=== PATIENT | female | born 1955 | race Caucasian/White ===

== ENCOUNTER 2023-03-24 10:44 | Emergency (ER) | payer OTHER ==
[2023-03-24 11:21] VITALS: BP 163/70; PULSE 79; RESP 18; TEMP 98.2; BMI 38.0
[2023-03-24] MEDS ORDERED: SODIUM CHLORIDE 0.9% 500 ML INFUS.BAG IV ONE (12:26)
[2023-03-24] MEDS ORDERED: SILVER NITRATE 75% APPLIC STCK 1 PKT EACH TP ONE (12:26)
[2023-03-24] MEDS ORDERED: SILVER NITRATE 75% APPLIC STCK 1 PKT EACH ONE (12:53)
[2023-03-24 13:45] LABS: POTASSIUM 4.4 mmol/L (3.5-5.1)
[2023-03-24 13:46] LABS: CALCIUM 9.6 mg/dL (8.5-10.1); MAGNESIUM 2.2 mg/dL (1.8-2.4)
[2023-03-24 13:47] LABS: BLOOD UREA NITROGEN 14.9 mg/dL (7-18)
[2023-03-24 13:50] LABS: CREATININE 0.8 mg/dL (0.55-1.3); HEMATOCRIT 38.4 % (32.4-45.2); HEMOGLOBIN 12.8 GM/dL (10.7-15.3); MCH 29.4 pg (25.7-33.7); MCHC 33.3 g/dl (32.0-36.0); MEAN CELL VOLUME 88.5 fl (80-96); MEAN PLT VOLUME 9.6 fl (7.5-11.1); RBC 4.34 M/mm3 (3.60-5.2); RDW 13.3 % (11.6-15.6)
[2023-03-24 13:51] LABS: WHITE BLOOD COUNT 9.6 K/mm3 (4.0-10.0)
[2023-03-24 13:52] LABS: PLATELET COUNT 311 10^3/uL (134-434)
[2023-03-24 15:08] LABS: ANISOCYTOSIS 0; MACROCYTOSIS 0
== END 2023-03-24 15:22 | disposition home or self-care (01) ==
LOC: JER 10:44
DX: R42 Dizziness and giddiness (principal); R20.2 Paresthesia of skin; R04.0 Epistaxis
CPT/HCPCS: 36415; 80048; 83735; 85025; 93005; 93010; 99284-25

== ENCOUNTER 2023-12-09 22:56 | Observation (INO) | payer OTHER ==
[2023-12-09] MEDS ORDERED: ACETAMINOPHEN INJECTION 100 ML ONE (23:31)
[2023-12-09] MEDS ORDERED: FAMOTIDINE 10 MG/ML VIAL IVPB ONE (23:31)
[2023-12-09] MEDS: LACTATED RINGERS SOLUTION 1000 ML INFUS.BAG IV ONE (23:52)
[2023-12-09] MEDS: ACETAMINOPHEN 1000 MG/100 ML BAG IVPB ONE (23:52)
[2023-12-09] MEDS: FAMOTIDINE 20 MG/50 ML IVPB 20 MG/50 ML MG IVPB ONE (23:52)
[2023-12-10 00:01] LABS: BASO % 0.6 % (0-2.0); EOS % 0.9 % (0-4.5); HEMATOCRIT 36.8 % (32.4-45.2); HEMOGLOBIN 12.6 GM/dL (10.7-15.3); LYMPH % 27.7 % (8-40); MCH 29.9 pg (25.7-33.7); MCHC 34.3 g/dl (32.0-36.0); MEAN CELL VOLUME 87.1 fl (80-96); MEAN PLT VOLUME 8.5 fl (7.5-11.1); MONO % 7.8 % (3.8-10.2); PLATELET COUNT 250 10^3/uL (134-434); RBC 4.23 M/mm3 (3.60-5.2); RDW 13.4 % (11.6-15.6); WHITE BLOOD COUNT 6.2 K/mm3 (4.0-10.0)
[2023-12-10 00:02] LABS: EPI CELLS 23 /uL (0-25.1); HYALINE CASTS 1 /uL (0-3.1); PH,URINE 6.5 (5.0-8.0); URINE APPEARANCE CLEAR; URINE BACTERIA 60 /uL (0-1359); URINE BILIRUBIN NEGATIVE (NEGATIVE); URINE COLOR YELLOW; URINE GLUCOSE (UA) NEGATIVE (NEGATIVE); URINE KETONE NEGATIVE (NEGATIVE); URINE LEUK ESTERASE 2+ (NEGATIVE); URINE NITRITE NEGATIVE (NEGATIVE); URINE PROTEIN NEGATIVE (NEGATIVE); URINE RBC 2 /uL (0-23.9); URINE UROBILINOGEN 0.2 mg/dL (0.2-1.0); URINE WBC 96 /uL (0-25.8)
[2023-12-10 00:09] LABS: INR 0.95 (0.83-1.09); PROTHROMBIN TIME (PATIENT) 10.7 SEC (9.7-13.0)
[2023-12-10 00:23] LABS: POTASSIUM 3.9 mmol/L (3.5-5.1)
[2023-12-10 00:25] LABS: CALCIUM 9.7 mg/dL (8.5-10.1)
[2023-12-10 00:26] LABS: ALBUMIN 4.4 g/dl (3.4-5.0); BLOOD UREA NITROGEN 14.3 mg/dL (7-18)
[2023-12-10 00:29] LABS: CREATININE 0.8 mg/dL (0.55-1.3); PHOSPHOROUS 2.7 mg/dL (2.5-4.9)
[2023-12-10 00:30] LABS: BILIRUBIN,TOTAL 0.7 mg/dL (0.2-1); TOT PROT 8.1 g/dl (6.4-8.2)
[2023-12-10] MEDS ORDERED: ASPIRIN 81 MG CHEWABLE TABLETS ONE (01:05)
[2023-12-10] MEDS ORDERED: CEFTRIAXONE 1 GM/50 ML BAG ONE (01:05)
[2023-12-10] MEDS ORDERED: ASPIRIN 325 MG TABLET PO ONE (01:07)
[2023-12-10] MEDS: CEFTRIAXONE 1,000 MG in DEXTROSE 5%-WATER - 50 ML IVPB ONE (01:09)
[2023-12-10] MEDS: ASPIRIN 81 MG CHEWABLE TABLETS PO ONE (01:09)
[2023-12-10] MEDS ORDERED: DOCUSATE SODIUM 100 MG CAPSULE (FP) PO PRN (03:54)
[2023-12-10 04:15] LABS: HIV INTERPRETATION NEGATIVE (NEGATIVE)
[2023-12-10 04:44] VITALS: BMI 26.5
[2023-12-10] MEDS ORDERED: MECLIZINE HCL 12.5 MG TABLET PO PRN (04:57)
[2023-12-10] MEDS ORDERED: MAG HYDROX/AL HYDROX/SIMETH 30 ML UNIT-DOSE CUP PO PRN (04:57)
[2023-12-10] MEDS ORDERED: ONDANSETRON 4 MG/2 ML VIAL IVPUSH PRN (04:57)
[2023-12-10] MEDS: INSULIN ASPART SLIDING SCALE (NOVOLOG) 1 VIAL SQ SCH (06:18)
[2023-12-10 07:17] LABS: BASO % 0.7 % (0-2.0); EOS % 0.5 % (0-4.5); HEMATOCRIT 35.8 % (32.4-45.2); HEMOGLOBIN 12.5 GM/dL (10.7-15.3); LYMPH % 23.2 % (8-40); MCH 30.6 pg (25.7-33.7); MCHC 34.8 g/dl (32.0-36.0); MEAN PLT VOLUME 8.8 fl (7.5-11.1); MONO % 6.1 % (3.8-10.2); NEUT % 69.5 % (42.8-82.8); PLATELET COUNT 238 10^3/uL (134-434); RBC 4.07 M/mm3 (3.60-5.2); RDW 13.7 % (11.6-15.6); WHITE BLOOD COUNT 5.1 K/mm3 (4.0-10.0)
[2023-12-10 07:44] LABS: POTASSIUM 3.7 mmol/L (3.5-5.1)
[2023-12-10 07:48] LABS: BLOOD UREA NITROGEN 10.4 mg/dL (7-18); CALCIUM 9.2 mg/dL (8.5-10.1)
[2023-12-10 07:53] LABS: CREATININE 0.7 mg/dL (0.55-1.3)
[2023-12-10] MEDS: CEFTRIAXONE 1 GM in DEXTROSE 5%-WATER - 50 ML IVPB SCH (10:08)
[2023-12-10] MEDS: MECLIZINE HCL 25 MG TABLET (FP) PO SCH (10:08)
[2023-12-10] MEDS: NADOLOL 40 MG TABLET (FP) PO SCH (16:31)
[2023-12-10] MEDS: ACETAMINOPHEN 325 MG TABLET (FP) PO PRN (21:04)
[2023-12-11 15:10] VITALS: BP 123/70; PULSE 60; RESP 17; TEMP 98.7
== END 2023-12-11 15:26 | disposition home or self-care (01) ==
LOC: JER 22:56 → JERBED 12-10 00:59 → J4S 12-10 03:08
PROVIDERS: ADMIT Internal Medicine; ATTEND Internal Medicine
PROC: 3E03329 Introduction of Other Anti-infective into Peripheral Vein, Percutaneous Approach (ICD-10-PCS; principal; 2023-12-10)
PROC: 3E033NZ Introduction of Analgesics, Hypnotics, Sedatives into Peripheral Vein, Percutaneous Approach (ICD-10-PCS; 2023-12-10)
PROC: 3E033GC Introduction of Other Therapeutic Substance into Peripheral Vein, Percutaneous Approach (ICD-10-PCS; 2023-12-10)
PROC: 3E0337Z Introduction of Electrolytic and Water Balance Substance into Peripheral Vein, Percutaneous Approach (ICD-10-PCS; 2023-12-10)
DX: N39.0 Urinary tract infection, site not specified (principal); E11.9 Type 2 diabetes mellitus without complications; I10 Essential (primary) hypertension; E78.5 Hyperlipidemia, unspecified; R42 Dizziness and giddiness; G43.909 Migraine, unspecified, not intractable, without status migrainosus; R53.1 Weakness
CPT/HCPCS: 0241U-QW; 36415; 70450-TC; 71045-TC-FY; 80048; 80053; 81003; 82607; 82962; 83036; 83605; 83735; 84100; 84439; 84443; 84484; 85025; 85610; 85730; 86780; 86803; 86850; 86900; 86901; 87086; 87389; 93005; 93010; 93308; 96365; 96366; 96367; 96375; 99285-25; G0378; J0131